=== PATIENT | male | born 1965 | race African-American/Black ===

== ENCOUNTER 2024-07-02 16:54 | Observation (INO) ==
[2024-07-02 17:40] LABS: BASOPHILS % (AUTO) 0.4 % (0.0-3.0); EOSINOPHILS # (AUTO) 0.2 K/ul (0.0-0.7); EOSINOPHILS % (AUTO) 2.5 % (0.0-7.0); HEMATOCRIT 46.2 % (42.0-52.0); HEMOGLOBIN 14.9 g/dl (14.0-18.0); IMMATURE GRANULOCYTE % (AUTO) 0.3 % (0.0-5.0); LYMPHOCYTES # (AUTO) 2.1 K/uL (0.60-3.4); LYMPHOCYTES % (AUTO) 29.7 (10.0-50.0); MEAN CORPUSCULAR HEMOGLOBIN 25.9 pg (27.0-31.0); MEAN CORPUSCULAR HGB CONC 32.3 (31.8-35.4); MEAN CORPUSCULAR VOLUME 80.2 fl (80.0-94.0); MONOCYTES # (AUTO) 0.5 K/uL (0.4-2.0); MONOCYTES % (AUTO) 6.9 (0-10); NEUTROPHILS # (AUTO) 4.3 K/ul (2.0-6.9); NEUTROPHILS % (AUTO) 60.2 % (42.2-75.2); PLATELET COUNT 198 10^3/uL (140-440); RDW COEFFICIENT OF VARIATION 14.8 % (11.6-14.8); RED BLOOD COUNT 5.76 10^6/ul (4.70-6.10); WHITE BLOOD COUNT 7.15 K/ul (4.2-10.2)
--- NOTE | 2024-07-02 17:48 | ED.PDOC ---
General ED Provider: Dr. PETE CASTRO MD Chief Complaint: Chest Pain Stated Complaint: 59-year-old male history of high cholesterol, does not see the doctor often, is not sure if he has high blood pressure, non-smoker, presenting to the emergency department with chest pain that started roughly around 3:00 today. It is substernal and he is also having some shoulder pain. He states that he has had shoulder pain recently. It has been waxing and waning but is still persistent. It is associated with diaphoresis and he did feel mildly short of breath when this happened. He did not have any nausea or vomiting with it. He has no history of DVT or PE that he is aware of. He is not coughing. He is not coughing up any blood. He denies fevers chills or feeling generally unwell. Denies malaise body aches, runny nose or sore throat. No diarrhea. Patient has no known cardiac history. Time Seen by Provider: 07/02/24 17:27 Information Source: Patient Primary Care Provider: FANTA DAVIS Nursing and Triage Documentation Reviewed and Agree: Yes What is Opioid Naive?: *Opioid Naive implies the patient is not already taking opioids or not chronically receiving opioids on a daily basis. *PRN dosing is not "usually" associated with tolerance. *Patients are at higher risk of over-sedation and aspiration. What is Opioid Tolerant?: *Opioid Tolerance implies less than the expected response to an opioid. *Acquired tolerance is defined by the patient taking 60mg of oral morphine daily (or equianalgesic dose of another opioid) for 1 week or more. *Often associated with chronic pain. *May take more than usual dose to achieve desired pain control. Review of Systems Review Of Systems Constitutional: Denies Chills or Fever Respiratory: Denies Cough Cardiac: Reports Chest pain GI: Denies Abdominal pain : Denies Burning or Dysuria Physical Exam Physical Exam Appearance: Reports Well-appearing Eyes: Reports AZAR, EOMI and Conjunctiva clear ENT: Reports Ears normal and Nose normal Respiratory: Reports Airway patent and Breath sounds clear; Denies Crackles, Rhonchi or Wheezes Cardiovascular: Reports RRR and Pulses normal GI/: Reports Soft and Nontender Musculoskeletal: Reports Normal strength and ROM intact Skin: Reports Warm Neurological: Reports Sensation intact Interpretation EKG Interpretation EKG Interpretation By: ED Physician Time of EKG #1: 17:04 Rate: Normal Rhythm: Sinus Ectopy: None [place]: NL ST Segment: Normal Course Course 07/02/24 17:20 07/02/24 17:20 Orders, Labs, Meds: Lab Review 07/02/24 07/02/24 07/02/24 17:20 18:37 19:05 WBC 7.15 RBC 5.76 Hgb 14.9 Hct 46.2 MCV 80.2 MCH 25.9 L MCHC 32.3 RDW Coeff of Patsy 14.8 Plt Count 198 Immature Gran % (Auto) 0.3 Neut % (Auto) 60.2 Lymph % (Auto) 29.7 [place] % (Auto) 6.9 Eos % (Auto) 2.5 Baso % (Auto) 0.4 Neut # (Auto) 4.3 Lymph # (Auto) 2.1 [place] # (Auto) 0.5 Eos # (Auto) 0.2 Baso # (Auto) 0.0 Immature Gran # (Auto) 0.0 PT 10.4 INR 1.00 Sodium 141.7 Potassium 3.91 Chloride 101.6 Carbon Dioxide 33.1 H Anion Gap 10.91 BUN 16.7 Creatinine 1.22 H Estimated GFR (MDRD) 74.00 BUN/Creatinine Ratio 13.68 Glucose 122.4 H Calcium 9.77 Magnesium 2.32 H Total Bilirubin 0.17 L AST 27.3 ALT 24.1 Alkaline Phosphatase 82.4 Troponin I < 0.012 0.041 NT-Pro-B Natriuret Pep < 20 Total Protein 7.76 Albumin 4.26 Globulin 3.50 Albumin/Globulin Ratio 1.21 D-Dimer 426.27 Influ A Molecular Assay Negative by naat Influ B Molecular Assay Negative by naat RSV Antigen Negative by naat SARS CoV-2 RNA Rapid ELIAN Negative Orders Category Date Time Status EKG-(ED ONLY) Stat CARDIO 07/02/24 17:27 Completed CBC W/ AUTO DIFF Stat LAB 07/02/24 17:20 Completed CMP [COMPREHENSIVE METABOLIC PANEL] Stat LAB 07/02/24 17:20 Completed COVID [SARS COV-2 RNA RAPID ELIAN] Stat LAB 07/02/24 18:37 Completed D-DIMER Stat LAB 07/02/24 17:20 Completed FLU A & B MOLECULAR [FLU A/B MOLECULAR] Stat LAB 07/02/24 18:37 Completed MAGNESIUM Stat LAB 07/02/24 17:20 Completed NT-PROBNP(ED) Stat LAB 07/02/24 17:20 Completed PT WITH INR Stat LAB 07/02/24 17:20 Completed RSV Stat LAB 07/02/24 18:37 Completed TROPONIN I Stat LAB 07/02/24 17:20 Completed TROPONIN I Stat LAB 07/02/24 19:05 Completed Aspirin [Aspirin Chewable] Meds 07/02/24 17:28 Discontinued 324 mg PO ONCE ONE Metoprolol Tartrate [Lopressor] Meds 07/02/24 19:42 Discontinued 25 mg PO ONCE STA Nitroglycerin [Nitro-Bid] Meds 07/02/24 18:47 Discontinued 0.5 inch TD ONCE ONE CXR [CHEST, 2 VIEWS PA & LAT] Stat RADS 07/02/24 17:27 Completed Medications Discontinued Medications Generic Name Dose Route Start Last Admin Trade Name Freq PRN Reason Stop Dose Admin Aspirin 324 mg 07/02/24 17:28 07/02/24 17:57 Aspirin 81 Mg Tab.Chew PO 07/02/24 17:29 324 mg ONCE ONE Administration Metoprolol Tartrate 25 mg 07/02/24 19:42 Metoprolol Tartrate 25 Mg Tablet PO 07/02/24 19:43 ONCE STA Nitroglycerin 0.5 inch 07/02/24 18:47 07/02/24 18:51 Nitroglycerin 1 Gm Oint TD 07/02/24 18:48 0.5 inch ONCE ONE Administration Vital Signs: Temp Pulse Resp BP Pulse Ox 07/02/24 17:03 100.1 F 100 14 189/124 H 95 Discharge Plan Discharge Patient Disposition: ADMITTED INPATIENT Discharge Problem: Chest pain, Hypertension Prescriptions: No Action pantoprazole [Protonix] [address] for susp in packet 40 mg PO DAILY albuterol sulfate 90 mcg/actuation HFA aerosol inhaler 2 inh inhalation Q4-6H PRN (Reason: shortness of breath or wheezing) Did you review [place] POWER TRANSMISSION ENGINEER for ALL controlled substances?: Not Applicable ED Provider: PETE CASTRO Condition: Stable Physician Progress Note: 59-year-old -[place] male history of high cholesterol no other known risk factors for ACS however does not follow-up with a physician regularly presenting to the emergency department with exertional chest pain that is substernal and feels like someone is stepping on his chest. He has not taken any medicine for this. It is currently a 3 out of 10. He is having a low-grade temp however with no infectious symptoms. His physical exam is unremarkable. His EKG was nonactionable however this is concerning for potential ACS. Will get CBC CMP troponin, will also get D-dimer as patient was reporting some thigh pain although he has no risk factors for DVT. Patient given aspirin in the ED. If troponins negative would likely admit to hospital for further cardiac testing and serial troponins versus transfer for NSTEMI. Less likely pneumothorax, pneumonia, patient not have any pain rating to his back. Not ripping or tearing pain to suggest dissection.
[2024-07-02 17:52] LABS: ALANINE AMINOTRANSFERASE 24.1 U/L (0-50); ALBUMIN 4.26 g/dL (3.5-5.0); ALKALINE PHOSPHATASE 82.4 U/L (38-126); ASPARTATE AMINO TRANSFERASE 27.3 U/L (17-59); BILIRUBIN,TOTAL 0.17 mg/dL (0.2-1.3); BLOOD UREA NITROGEN 16.7 mg/dL (9-20); CALCIUM 9.77 mg/dL (8.4-10.2); CARBON DIOXIDE 33.1 mmol/L (22-30.0); CHLORIDE 101.6 mmol/L (98-107); CREATININE 1.22 mg/dL (0.60-1.10); GLUCOSE 122.4 mg/dL (74-106); MAGNESIUM 2.32 mg/dL (1.6-2.3); POTASSIUM 3.91 mmol/L (3.5-5.1); SODIUM 141.7 mmol/L (134.5-145); TOTAL PROTEIN 7.76 g/dL (6.3-8.2)
[2024-07-02 17:56] LABS: PROTHROMBIN TIME 10.4 SEC (9.3-11.0)
[2024-07-02] MEDS: ASPIRIN CHEWABLE PO ONE (17:57)
--- NOTE | 2024-07-02 17:58 | DI ---
EXAM: CHEST RADIOGRAPH TECHNIQUE: Two views. Frontal and lateral. HISTORY: Leg swelling COMPARISON: None. FINDINGS: The lungs are clear. The heart size is normal. Osseous structures are unremarkable IMPRESSION: 1. Normal Exam.
[2024-07-02 18:04] LABS: TROPONIN I < 0.012 ng/ml (0.0000-0.120)
[2024-07-02] MEDS ORDERED: NITROGLYCERIN 0.1 MG/HR TD ONE (18:43)
[2024-07-02] MEDS: NITRO-BID TD ONE (18:51)
[2024-07-02 18:56] LABS: MOLECULAR FLU A NEGATIVE BY NAAT (NEGATIVE); MOLECULAR FLU B NEGATIVE BY NAAT (NEGATIVE); RSV MOLECULAR NEGATIVE BY NAAT (NEGATIVE); SARS COV-2 RNA RAPID NAAT NEGATIVE (NEGATIVE)
[2024-07-02] MEDS ORDERED: TYLENOL PO PRN (19:47)
[2024-07-02] MEDS ORDERED: NITROSTAT SL PRN (19:47)
[2024-07-02] MEDS ORDERED: HYDRALAZINE HCL IVP PRN (19:53)
[2024-07-02] MEDS: LOPRESSOR PO STA (20:02)
[2024-07-02 20:26] LABS: BILIRUBIN,URINE Negative (NEGATIVE); CLARITY,URINE Cloudy (CLEAR); COLOR,URINE Light (YELLOW); GLUCOSE, URINE (UA) Negative (NEGATIVE); KETONES,URINE Negative (NEGATIVE); LEUKOCYTE ESTERASE ,URINE 1+ (NEGATIVE); NITRITE,URINE Negative (NEGATIVE); PROTEIN,URINE Negative (NEGATIVE); URINE, BLOOD Negative (NEGATIVE)
[2024-07-02 20:36] LABS: AMORPHOUS SEDIMENT,UR 1+ (NOT PRESENT); BACTERIA,URINE TRACE (NOT PRESENT); RENAL EPITHELIAL CELLS,URINE 0-2 (NOT PRESENT); URINE RBC, MICROSCOPIC 0-2 (0-2)
[2024-07-02 21:48] VITALS: BMI 34.7
[2024-07-03 03:29] LABS: CREATINE KINASE 105.7 U/L (55-170)
[2024-07-03 03:42] LABS: TROPONIN I 0.479 ng/ml (0.0000-0.120)
[2024-07-03 05:42] LABS: BASOPHILS % (AUTO) 0.4 % (0.0-3.0); EOSINOPHILS # (AUTO) 0.3 K/ul (0.0-0.7); EOSINOPHILS % (AUTO) 3.6 % (0.0-7.0); HEMATOCRIT 43.4 % (42.0-52.0); HEMOGLOBIN 13.7 g/dl (14.0-18.0); IMMATURE GRANULOCYTE % (AUTO) 0.3 % (0.0-5.0); LYMPHOCYTES # (AUTO) 2.5 K/uL (0.60-3.4); LYMPHOCYTES % (AUTO) 36.5 (10.0-50.0); MEAN CORPUSCULAR HEMOGLOBIN 25.7 pg (27.0-31.0); MEAN CORPUSCULAR HGB CONC 31.6 (31.8-35.4); MEAN CORPUSCULAR VOLUME 81.3 fl (80.0-94.0); MONOCYTES # (AUTO) 0.5 K/uL (0.4-2.0); MONOCYTES % (AUTO) 7.8 (0-10); NEUTROPHILS # (AUTO) 3.5 K/ul (2.0-6.9); NEUTROPHILS % (AUTO) 51.4 % (42.2-75.2); PLATELET COUNT 200 10^3/uL (140-440); RDW COEFFICIENT OF VARIATION 14.9 % (11.6-14.8); RED BLOOD COUNT 5.34 10^6/ul (4.70-6.10)
[2024-07-03 05:59] LABS: ALANINE AMINOTRANSFERASE 20.6 U/L (0-50); ALBUMIN 3.69 g/dL (3.5-5.0); ALKALINE PHOSPHATASE 60.6 U/L (38-126); BILIRUBIN,TOTAL 0.18 mg/dL (0.2-1.3); BLOOD UREA NITROGEN 19.7 mg/dL (9-20); CALCIUM 9.21 mg/dL (8.4-10.2); CARBON DIOXIDE 28.3 mmol/L (22-30.0); CHLORIDE 107.3 mmol/L (98-107); CREATININE 1.14 mg/dL (0.60-1.10); GLUCOSE 101.1 mg/dL (74-106); POTASSIUM 4.27 mmol/L (3.5-5.1); TOTAL PROTEIN 6.94 g/dL (6.3-8.2)
[2024-07-03] MEDS: ASPIRIN EC PO SCH (09:52)
[2024-07-03 10:48] LABS: PROTHROMBIN TIME 10.4 SEC (9.3-11.0)
[2024-07-03 11:46] LABS: CHOLESTEROL 222.2 mg/dL (0-200); HDL CHOLESTEROL 28.1 mg/dL (35-60); TRIGLYCERIDES 125.2 mg/dL (0-150)
--- NOTE | 2024-07-03 11:55 | PCM.SS ---
Provider Provider: [facility]IST[facility] PACK [facility] Date Admission Date: 07/02/24 Discharge Date Discharge Date: 07/03/24 Primary Care Physician Primary Care Physician: FANTA DAVIS Chief Complaint Reason For Visit: CHEST PAIN, HYPERTENSION History of Present Illness History of Present Illness: Admitted 07/02/24 21:04, this 59 year old AA/BLACK/M with ARPITA on CPAP but otherwise no significant pmhx who presents to ER with complaints of chest pain x30 minutes on and off. It radiated to his left shoulder, but states he often has left shoulder pain due to his rotator cuff. Denies associated n/v, diaphoresis, jaw pain. Denies hx of smoking, drugs, etc. Has family history of mother with CAD s/p stents. Initial trop negative. EKG unremarkable. Admitted to [facility] for chest pain rule out and stress/echo planned for today on 07/03. H owever, patient's troponins have gradually trended up. Pt remains chest pain free since admission. Repeat EKG showing no ST changes currently. No other cause for elevated of troponin noted. CXR negative, flu/covid/rsv negative. Renal function at baseline. Pt started on heparin drip for NSTEMI. Discussed need for higher level of care. Pt prefers [facility]. Spoke with Dr. Traore at [facility] who graciously accepts patient. [facility] Medical History Sleep apnea in adult G47.30 - Sleep apnea, unspecified (ICD-10) Sleep apnea G47.30 - Sleep apnea, unspecified (ICD-10) Family History Mother COVID-19 Social History Smoking and tobacco status: Never smoker Alcohol intake: never Medications Mecications: Medications at Discharge (Home Meds & RX) pantoprazole 40 mg granules delayed-release for susp in packet (Protonix) 40 mg PO DAILY 01/03/24 albuterol sulfate 90 mcg/actuation aerosol inhaler 2 inh inhalation Q4-6H PRN shortness of breath or wheezing 07/02/24 Allergies Allergies Allergy/AdvReac Type Severity Reaction Status Date / Time No Known Allergies Allergy Verified 07/02/24 17:08 Review of Systems Constitutional: Denies Fever or Fatigue Head: Reports Normocephalic and Atraumatic Throat: Denies Sore Throat Cardiovascular: Reports Chest pain and Chest Pressure; Denies Edema Respiratory: Denies Cough or Shortness of air Gastrointestinal: Denies Nausea, Vomiting, Abdominal pain or Melena Genitourinary: Denies Dysuria, Hematuria or Frequency Dermatologic: Denies Rashes Neurological: Denies Dizziness Psychiatric: Denies Depression or Anxiety Physical Examination Appearance: Positive No Apparent Distress and Alert and Oriented x3 Head: Positive Normocephalic and Atraumatic Neck: Positive Supple and Non-Tender Heart: Positive RRR Respiratory: Positive Breath Sounds Clear, Bilaterally and Breath Sounds Equal; Negative Crackles, Rhonchi, Wheezes or Retractions GI/: Positive Soft, Nontender, Bowel sounds normal and No Distention Extremities: Positive Pedal Pulses Palpable Bilaterally; Negative Edema Psychiatric: Positive Normal Judgement, Normal Insight, Affect Appropriate and Mood Appropriate Vital Signs (Last 4 Hours) Vital Signs Last 4 Hours: Vital Signs: Last 4 Hours 07/03/24 08:00 07/03/24 08:00 07/03/24 09:00 Temperature Temperature Source Pulse Rate Respiratory Rate Blood Pressure Blood Pressure Mean Blood Pressure Location Blood Pressure Position O2 Sat by Pulse Oximetry Oxygen Delivery Method Room Air Room Air Room Air 07/03/24 09:00 07/03/24 10:00 07/03/24 10:00 Temperature 97.6 F Temperature Source Tympanic Pulse Rate 78 Respiratory Rate 18 Blood Pressure 129/89 Blood Pressure Mean 102 Blood Pressure Location Left Arm Blood Pressure Position Supine O2 Sat by Pulse Oximetry 95 Oxygen Delivery Method Room Air Room Air Room Air 07/03/24 10:00 07/03/24 11:00 Temperature Temperature Source Pulse Rate Respiratory Rate Blood Pressure Blood Pressure Mean Blood Pressure Location Blood Pressure Position O2 Sat by Pulse Oximetry Oxygen Delivery Method Room Air Room Air Labs This Visit Labs This Visit: Labs This Visit 07/02/24 07/02/24 07/02/24 17:20 18:37 19:05 WBC 7.15 RBC 5.76 Hgb 14.9 Hct 46.2 MCV 80.2 MCH 25.9 L MCHC 32.3 RDW Coeff of Patsy 14.8 Plt Count 198 Immature Gran % (Auto) 0.3 Neut % (Auto) 60.2 Lymph % (Auto) 29.7 [place] % (Auto) 6.9 Eos % (Auto) 2.5 Baso % (Auto) 0.4 Neut # (Auto) 4.3 Lymph # (Auto) 2.1 [place] # (Auto) 0.5 Eos # (Auto) 0.2 Baso # (Auto) 0.0 Immature Gran # (Auto) 0.0 PT 10.4 INR 1.00 Sodium 141.7 Potassium 3.91 Chloride 101.6 Carbon Dioxide 33.1 H Anion Gap 10.91 BUN 16.7 Creatinine 1.22 H Estimated GFR (MDRD) 74.00 BUN/Creatinine Ratio 13.68 Glucose 122.4 H Hemoglobin A1c Calcium 9.77 Magnesium 2.32 H Total Bilirubin 0.17 L AST 27.3 ALT 24.1 Alkaline Phosphatase 82.4 Total Creatine Kinase Troponin I < 0.012 0.041 NT-Pro-B Natriuret Pep < 20 Total Protein 7.76 Albumin 4.26 Globulin 3.50 Albumin/Globulin Ratio 1.21 Triglycerides Cholesterol LDL Cholesterol, Calc VLDL Cholesterol HDL Cholesterol Cholesterol/HDL Ratio D-Dimer 426.27 Urine Color Urine Clarity Urine pH Ur Specific Gilbert Urine Protein Urine Glucose (UA) Urine Ketones Urine Blood Urine Nitrite Urine Bilirubin Urine Urobilinogen Ur Leukocyte Esterase Urine Microscopic RBC Urine Microscopic WBC Ur Squamous Epith Cells Ur Renal Epithelial Cell Amorphous Sediment Urine Bacteria Influ A Molecular Assay Negative by naat Influ B Molecular Assay Negative by naat RSV Antigen Negative by naat SARS CoV-2 RNA Rapid ELIAN Negative 07/02/24 07/03/24 07/03/24 20:20 03:15 05:20 WBC 6.90 RBC 5.34 Hgb 13.7 L Hct 43.4 MCV 81.3 MCH 25.7 L MCHC 31.6 L RDW Coeff of Patsy 14.9 H Plt Count 200 Immature Gran % (Auto) 0.3 Neut % (Auto) 51.4 Lymph % (Auto) 36.5 [place] % (Auto) 7.8 Eos % (Auto) 3.6 Baso % (Auto) 0.4 Neut # (Auto) 3.5 Lymph # (Auto) 2.5 [place] # (Auto) 0.5 Eos # (Auto) 0.3 Baso # (Auto) 0.0 Immature Gran # (Auto) 0.0 PT 10.4 INR 1.00 Sodium 140.0 Potassium 4.27 Chloride 107.3 H Carbon Dioxide 28.3 Anion Gap 8.67 BUN 19.7 Creatinine 1.14 H Estimated GFR (MDRD) 80.00 BUN/Creatinine Ratio 17.28 Glucose 101.1 Hemoglobin A1c 6.12 H Calcium 9.21 Magnesium Total Bilirubin 0.18 L AST 27.0 ALT 20.6 Alkaline Phosphatase 60.6 Total Creatine Kinase 105.7 Troponin I 0.479 H NT-Pro-B Natriuret Pep Total Protein 6.94 Albumin 3.69 Globulin 3.25 Albumin/Globulin Ratio 1.13 Triglycerides 125.2 Cholesterol 222.2 H LDL Cholesterol, Calc 169 VLDL Cholesterol 25 HDL Cholesterol 28.1 L Cholesterol/HDL Ratio 7.9 H D-Dimer Urine Color Light Urine Clarity Cloudy Urine pH 7.0 Ur Specific Gilbert 1.020 Urine Protein Negative Urine Glucose (UA) Negative Urine Ketones Negative Urine Blood Negative Urine Nitrite Negative Urine Bilirubin Negative Urine Urobilinogen 1.0 H Ur Leukocyte Esterase 1+ H Urine Microscopic RBC 0-2 Urine Microscopic WBC 5-10 Ur Squamous Epith Cells 2-5 Ur Renal Epithelial Cell 0-2 Amorphous Sediment 1+ Urine Bacteria Trace Influ A Molecular Assay Influ B Molecular Assay RSV Antigen SARS CoV-2 RNA Rapid ELIAN 07/03/24 09:26 WBC RBC Hgb Hct MCV MCH MCHC RDW Coeff of Patsy Plt Count Immature Gran % (Auto) Neut % (Auto) Lymph % (Auto) [place] % (Auto) Eos % (Auto) Baso % (Auto) Neut # (Auto) Lymph # (Auto) [place] # (Auto) Eos # (Auto) Baso # (Auto) Immature Gran # (Auto) PT INR Sodium Potassium Chloride Carbon Dioxide Anion Gap BUN Creatinine Estimated GFR (MDRD) BUN/Creatinine Ratio Glucose Hemoglobin A1c Calcium Magnesium Total Bilirubin AST ALT Alkaline Phosphatase Total Creatine Kinase Troponin I 0.525 H* NT-Pro-B Natriuret Pep Total Protein Albumin Globulin Albumin/Globulin Ratio Triglycerides Cholesterol LDL Cholesterol, Calc VLDL Cholesterol HDL Cholesterol Cholesterol/HDL Ratio D-Dimer Urine Color Urine Clarity Urine pH Ur Specific Gilbert Urine Protein Urine Glucose (UA) Urine Ketones Urine Blood Urine Nitrite Urine Bilirubin Urine Urobilinogen Ur Leukocyte Esterase Urine Microscopic RBC Urine Microscopic WBC Ur Squamous Epith Cells Ur Renal Epithelial Cell Amorphous Sediment Urine Bacteria Influ A Molecular Assay Influ B Molecular Assay RSV Antigen SARS CoV-2 RNA Rapid ELIAN Microbiology This Visit 07/02/24 20:20 Urine,Random Urine Culture - Preliminary Imaging Imaging: EXAM: CHEST RADIOGRAPH TECHNIQUE: Two views. Frontal and lateral. HISTORY: Leg swelling COMPARISON: None. FINDINGS: The lungs are clear. The heart size is normal. Osseous structures are unremarkable IMPRESSION: 1. Normal Exam. Review Review Statement: I have independently reviewed and interpreted the labs/EKGs/imaging that were ordered by the ER provider. I have reviewed all outside records that are available currently in our EMR including imaging/notes/labs from previous visits. Plan Reccomendations/Plan: Patient was admitted to [facility] for chest pain rule out and stress/echo planned for today on 07/03. However, patient's troponins have gradually trended up. Pt remains chest pain free since admission. Repeat EKG showing no ST changes currently. No other cause for elevated of troponin noted. CXR negative, flu/covid/rsv negative. Renal function at baseline. Pt started on heparin drip for NSTEMI. Discussed need for higher level of care. Pt prefers [facility]. Spoke with Dr. Traore at [facility] who graciously accepts patient. Discharge diagnoses: 1. NSTEMI in setting of chest pain 2. ARPITA Additional Planning: Case discussed with ED Physician, Dr. Almazan. Advanced Care Plannin minutes spent discussing advance care planning. Disposition: Transfer Admit to: Obs Discussed Plan of Care with Dr. Temitope Traore. Review With Patient Reviewed with Patient and Family: Patient and family have been counseled on condition and care plan and have no immediate questions. I have personally discussed and reviewed the patient's visit/current labs/imaging/decision making with Dr. Temitope Traore, my supervising attending. Total number of minutes spent with patient [85] min. More than 50% of the time spent with this patient was devoted to counseling and coordination of care. Time of Admission:07/02/24 21:04 Time of Discharge: 07/03/24 1200 Discharge Plan Discharge Discharge Orders: Discharge Patient (ONCE); Ordered 07/03/24 Ordered By: MISTY PACK Activity Restrictions/Additional Instructions: TRANSFER TO [facility], DR. TRAORE ACCEPTS Patient Disposition: TSF SHORT-TRM HOSP Did you review [place] SOFTWARE TEST ANALYST for ALL controlled substances?: Not Applicable Discussed opioids are addictive and Narcan is available by prescription or from pharmacy.: No Condition: Stable
[2024-07-03] MEDS: HEPARIN 25,000 UNIT/250 ML NACL 25,000 UNIT/250 ML BAG IV SCH (12:43)
--- NOTE | 2024-07-03 14:46 | PCM ---
Date of Service Date Seen by Provider: 07/03/24 Time Seen by Provider: 19:47 Admit Day/Time Admission Date: 07/02/24 Admission Time: 16:16 Reason for Admission Chief Complaint: CHEST PAIN, HYPERTENSION Hospital Provider Hospital Provider: MISTY PACK PA-C, [facility] [place] [facility] Primary Care Physician: FANTA DAVIS History of Present Illness History of Present Illness: Admitted 07/02/24 21:04, this 59 year old AA/BLACK/M with ARPITA on CPAP but otherwise no significant pmhx who presents to ER with complaints of chest pain x30 minutes on and off. It radiated to his left shoulder, but states he often has left shoulder pain due to his rotator cuff. Denies associated n/v, diaphoresis, jaw pain. Denies hx of smoking, drugs, etc. Has family history of mother with CAD s/p stents. Initial trop negative. EKG unremarkable. Admitted to med surg for chest pain rule out and stress/echo planned for today on 07/03. However, patient's troponins have gradually trended up. Pt remains chest pain free since admission. Repeat EKG showing no ST changes currently. No other cause for elevated of troponin noted. CXR negative, flu/covid/rsv negative. Renal function at baseline. Pt started on heparin drip for NSTEMI. Discussed need for higher level of care with him and his . Case Discussed With Case Discussed With: Patient's case was discussed with the ER Physicians, Dr. Almazan. [facility] Medical History Sleep apnea in adult G47.30 - Sleep apnea, unspecified (ICD-10) Sleep apnea G47.30 - Sleep apnea, unspecified (ICD-10) Family History Mother COVID-19 Social History Smoking and tobacco status: Never smoker Alcohol intake: never Allergies Allergies Allergy/AdvReac Type Severity Reaction Status Date / Time No Known Allergies Allergy Verified 07/02/24 17:08 Current Medications Home Medications Acetaminophen (Acetaminophen 325 Mg Tablet) 650 mg PO Q4H PRN PRN Reason: FEVER/PAIN Aspirin (Aspirin 81 Mg Tablet.) 81 mg PO DAILY [facility] Last Admin: 07/03/24 09:52 Dose: 81 mg Hydralazine HCl (Hydralazine Hcl 20 Mg/Ml Sdv) 10 mg IVP Q6H PRN PRN Reason: Hypertension Heparin Sodium/Sodium Chloride (Heparin 25,000 Unit/250 Ml Nacl) 25,000 unit in 250 mls @ 13.2 mls/hr IV TITRATION [facility]; Protocol Last Admin: 07/03/24 12:43 Dose: 12 unit/kg/hr, 13.2 mls/hr Metoprolol Tartrate (Metoprolol Tartrate 25 Mg Tablet) 25 mg PO BID [facility] Last Admin: 07/03/24 15:52 Dose: 25 mg Nitroglycerin (Nitroglycerin 0.4 Mg Tab.Subl) 0.4 mg SL Q5MIN X 3 DOSES PRN PRN Reason: Chest Pain Sodium Chloride (0.9% Sodium Chloride 10 Ml Disp.Syrin) 1 syr IVF Q8HR [facility] Last Admin: 07/03/24 13:16 Dose: Not Given pantoprazole 40 mg granules delayed-release for susp in packet (Protonix) 40 mg PO DAILY 01/03/24 [History Confirmed 07/02/24] albuterol sulfate 90 mcg/actuation aerosol inhaler 2 inh inhalation Q4-6H PRN shortness of breath or wheezing 07/02/24 [History Confirmed 07/02/24] Opioid Naive vs. Tolerant Does Patient Take Opioids?: No Is Patient Opioid Naive?: Yes What is Opioid Naive?: *Opioid Naive implies the patient is not already taking opioids or not chronically receiving opioids on a daily basis. *PRN dosing is not "usually" associated with tolerance. *Patients are at higher risk of over-sedation and aspiration. Is Patient Opioid Tolerant?: No What is Opioid Tolerant?: *Opioid Tolerance implies less than the expected response to an opioid. *Acquired tolerance is defined by the patient taking 60mg of oral morphine daily (or equianalgesic dose of another opioid) for 1 week or more. *Often associated with chronic pain. *May take more than usual dose to achieve desired pain control. Review of Systems Constitutional: Denies Fever or Fatigue Cardiovascular: Reports Chest pain and Chest Pressure; Denies Edema Respiratory: Reports Cough (patient states this is chronic ); Denies Shortness of air Gastrointestinal: Denies Nausea, Vomiting, Diarrhea, Abdominal pain or Melena Genitourinary: Denies Dysuria or Hematuria Dermatologic: Denies Rashes Physical examination Most Recent Vital Signs: Most Recent Vital Signs Temperature 97 F L 07/03/24 13:18 Temperature Source Tympanic 07/03/24 13:18 Temperature Source Rectal 07/02/24 17:03 Pulse Rate 82 07/03/24 13:18 Respiratory Rate 18 07/03/24 13:18 Blood Pressure 139/99 H 07/03/24 13:18 Blood Pressure Mean 112 07/03/24 13:18 Blood Pressure Left Arm 151/91 07/02/24 21:37 Blood Pressure Location Left Arm 07/03/24 13:18 Blood Pressure Position Sitting 07/03/24 13:18 O2 Sat by Pulse Oximetry 95 07/03/24 13:18 Oxygen Delivery Method Room Air 07/03/24 13:18 Oxygen Flow Rate 2 07/03/24 02:00 Height 5 ft 10 in 07/02/24 21:37 Weight 110 kg 07/02/24 21:37 Telemetry Type Remote Telemetry 07/03/24 07:00 Telemetry Monitoring Continues 07/03/24 01:00 Telemetry Heart Rate 81 07/03/24 07:00 EKG [place] Interval 0.17 07/03/24 07:00 EKG QRS Interval 0.05 L 07/03/24 07:00 Telemetry Strip Reading SR 07/03/24 07:00 Appearance: Positive No Apparent Distress and Alert and Oriented x3 Skin: Negative Rashes HEENT: Positive Normocephalic and Atraumatic Chest/Lungs: Positive Clear to Auscultation Bilaterally; Negative Rales, Rhonci or Wheezes Heart: Positive RRR GI/: Positive Soft, Nontender, Bowel Sounds Normal and No Distention Neurological: Positive Cranial Nerves Intact, Alert and Oriented Psychiatric: Positive Oriented x4, Appropriate Mood and Appropriate Affect Labs This Visit Labs This Visit: Labs This Visit 07/02/24 07/02/24 07/02/24 17:20 18:37 19:05 WBC 7.15 RBC 5.76 Hgb 14.9 Hct 46.2 MCV 80.2 MCH 25.9 L MCHC 32.3 RDW Coeff of Patsy 14.8 Plt Count 198 Immature Gran % (Auto) 0.3 Neut % (Auto) 60.2 Lymph % (Auto) 29.7 [place] % (Auto) 6.9 Eos % (Auto) 2.5 Baso % (Auto) 0.4 Neut # (Auto) 4.3 Lymph # (Auto) 2.1 [place] # (Auto) 0.5 Eos # (Auto) 0.2 Baso # (Auto) 0.0 Immature Gran # (Auto) 0.0 PT 10.4 INR 1.00 Sodium 141.7 Potassium 3.91 Chloride 101.6 Carbon Dioxide 33.1 H Anion Gap 10.91 BUN 16.7 Creatinine 1.22 H Estimated GFR (MDRD) 74.00 BUN/Creatinine Ratio 13.68 Glucose 122.4 H Hemoglobin A1c Calcium 9.77 Magnesium 2.32 H Total Bilirubin 0.17 L AST 27.3 ALT 24.1 Alkaline Phosphatase 82.4 Total Creatine Kinase Troponin I < 0.012 0.041 NT-Pro-B Natriuret Pep < 20 Total Protein 7.76 Albumin 4.26 Globulin 3.50 Albumin/Globulin Ratio 1.21 Triglycerides Cholesterol LDL Cholesterol, Calc VLDL Cholesterol HDL Cholesterol Cholesterol/HDL Ratio D-Dimer 426.27 Urine Color Urine Clarity Urine pH Ur Specific [place] Urine Protein Urine Glucose (UA) Urine Ketones Urine Blood Urine Nitrite Urine Bilirubin Urine Urobilinogen Ur Leukocyte Esterase Urine Microscopic RBC Urine Microscopic WBC Ur Squamous Epith Cells Ur Renal Epithelial Cell Amorphous Sediment Urine Bacteria Influ A Molecular Assay Negative by naat Influ B Molecular Assay Negative by naat RSV Antigen Negative by naat SARS CoV-2 RNA Rapid ELIAN Negative 07/02/24 07/03/24 07/03/24 20:20 03:15 05:20 WBC 6.90 RBC 5.34 Hgb 13.7 L Hct 43.4 MCV 81.3 MCH 25.7 L MCHC 31.6 L RDW Coeff of Patsy 14.9 H Plt Count 200 Immature Gran % (Auto) 0.3 Neut % (Auto) 51.4 Lymph % (Auto) 36.5 [place] % (Auto) 7.8 Eos % (Auto) 3.6 Baso % (Auto) 0.4 Neut # (Auto) 3.5 Lymph # (Auto) 2.5 [place] # (Auto) 0.5 Eos # (Auto) 0.3 Baso # (Auto) 0.0 Immature Gran # (Auto) 0.0 PT 10.4 INR 1.00 Sodium 140.0 Potassium 4.27 Chloride 107.3 H Carbon Dioxide 28.3 Anion Gap 8.67 BUN 19.7 Creatinine 1.14 H Estimated GFR (MDRD) 80.00 BUN/Creatinine Ratio 17.28 Glucose 101.1 Hemoglobin A1c 6.12 H Calcium 9.21 Magnesium Total Bilirubin 0.18 L AST 27.0 ALT 20.6 Alkaline Phosphatase 60.6 Total Creatine Kinase 105.7 Troponin I 0.479 H NT-Pro-B Natriuret Pep Total Protein 6.94 Albumin 3.69 Globulin 3.25 Albumin/Globulin Ratio 1.13 Triglycerides 125.2 Cholesterol 222.2 H LDL Cholesterol, Calc 169 VLDL Cholesterol 25 HDL Cholesterol 28.1 L Cholesterol/HDL Ratio 7.9 H D-Dimer Urine Color Light Urine Clarity Cloudy Urine pH 7.0 Ur Specific [place] 1.020 Urine Protein Negative Urine Glucose (UA) Negative Urine Ketones Negative Urine Blood Negative Urine Nitrite Negative Urine Bilirubin Negative Urine Urobilinogen 1.0 H Ur Leukocyte Esterase 1+ H Urine Microscopic RBC 0-2 Urine Microscopic WBC 5-10 Ur Squamous Epith Cells 2-5 Ur Renal Epithelial Cell 0-2 Amorphous Sediment 1+ Urine Bacteria Trace Influ A Molecular Assay Influ B Molecular Assay RSV Antigen SARS CoV-2 RNA Rapid ELIAN 07/03/24 09:26 WBC RBC Hgb Hct MCV MCH MCHC RDW Coeff of Patsy Plt Count Immature Gran % (Auto) Neut % (Auto) Lymph % (Auto) [place] % (Auto) Eos % (Auto) Baso % (Auto) Neut # (Auto) Lymph # (Auto) [place] # (Auto) Eos # (Auto) Baso # (Auto) Immature Gran # (Auto) PT INR Sodium Potassium Chloride Carbon Dioxide Anion Gap BUN Creatinine Estimated GFR (MDRD) BUN/Creatinine Ratio Glucose Hemoglobin A1c Calcium Magnesium Total Bilirubin AST ALT Alkaline Phosphatase Total Creatine Kinase Troponin I 0.525 H* NT-Pro-B Natriuret Pep Total Protein Albumin Globulin Albumin/Globulin Ratio Triglycerides Cholesterol LDL Cholesterol, Calc VLDL Cholesterol HDL Cholesterol Cholesterol/HDL Ratio D-Dimer Urine Color Urine Clarity Urine pH Ur Specific [place] Urine Protein Urine Glucose (UA) Urine Ketones Urine Blood Urine Nitrite Urine Bilirubin Urine Urobilinogen Ur Leukocyte Esterase Urine Microscopic RBC Urine Microscopic WBC Ur Squamous Epith Cells Ur Renal Epithelial Cell Amorphous Sediment Urine Bacteria Influ A Molecular Assay Influ B Molecular Assay RSV Antigen SARS CoV-2 RNA Rapid ELIAN Microbiology This Visit 07/02/24 20:20 Urine,Random Urine Culture - Preliminary Imaging Imaging: EXAM: CHEST RADIOGRAPH TECHNIQUE: Two views. Frontal and lateral. HISTORY: Leg swelling COMPARISON: None. FINDINGS: The lungs are clear. The heart size is normal. Osseous structures are unremarkable IMPRESSION: 1. Normal Exam. Review Statement Review Statement: I have independently reviewed and interpreted the labs/EKGs/imaging that were ordered by the ER provider. I have reviewed all outside records that are available currently in our EMR including imaging/notes/labs from previous visits. Plan Plan: 1. NSTEMI in setting of chest pain - Trop up to 0.5. Chest pain free currently. Received full dose asa last night in ER, baby asa this morning. Start heparin drip. PTT q6hrs, adjust per protocol. Metoprolol 25 mg bid added. NPO after midnight since not transferring today. Tele. 2. ARPITA - Wear CPAP at bedtime Delay in transfer due to no beds available at multiple facilities. Patient prefers [facility]. Initially was accepted to [facility] ER but there was a mix up in bed status. He has since been accepted by Dr. Becerra, hospitalist if a bed becomes available. Dr. Olivares, cardiology is aware and willing to consult. [facility] is full. [facility] - also full but on wait list as well. Dr. Andersen is accepting hospitalist. Dr. Baltazar, cardiology is aware of patient and able to cath tomorrow if bed becomes available. DVT Prophylaxis: Heparin drip Time Spent: Greater than 80 minutes spent with patient, 50% of the time spent with this patient was devoted to counseling and coordination of care. [facility] minutes spent discussing advance care planning. Admit to: Obs Discussed Plan of Care with Dr. Temitope Traore. Medications Medication Orders: Medications Ordered Category Date Time Status 0.9 % Sodium Chloride [Saline Flush] Meds 07/02/24 21:00 Active 1 syr IVF Q8HR Acetaminophen [Tylenol] Meds 07/02/24 19:47 Active 650 mg PO Q4H PRN Aspirin [Aspirin EC] Meds 07/03/24 09:00 Active 81 mg PO DAILY Heparin Sod,Pork in 0.45% NaCl [Heparin 25,000 Unit/250 Meds 07/03/24 11:00 Active ml NaCl] 25,000 unit in 250 ml IV TITRATION Hydralazine HCl Meds 07/02/24 19:53 Active 10 mg IVP Q6H PRN Metoprolol Tartrate [Lopressor] Meds 07/03/24 14:30 Active 25 mg PO BID Nitroglycerin [Nitrostat] Meds 07/02/24 19:47 Active 0.4 mg SL Q5MIN X 3 DOSES PRN
[2024-07-03] MEDS: LOPRESSOR PO SCH (15:52)
[2024-07-03] MEDS: HEPARIN IVP ONE (23:29)
[2024-07-04 04:39] LABS: BASOPHILS % (AUTO) 0.4 % (0.0-3.0); EOSINOPHILS # (AUTO) 0.4 K/ul (0.0-0.7); EOSINOPHILS % (AUTO) 4.9 % (0.0-7.0); HEMOGLOBIN 13.9 g/dl (14.0-18.0); IMMATURE GRANULOCYTE % (AUTO) 0.3 % (0.0-5.0); LYMPHOCYTES # (AUTO) 3.4 K/uL (0.60-3.4); LYMPHOCYTES % (AUTO) 46.2 (10.0-50.0); MEAN CORPUSCULAR HEMOGLOBIN 25.6 pg (27.0-31.0); MEAN CORPUSCULAR HGB CONC 30.9 (31.8-35.4); MEAN CORPUSCULAR VOLUME 82.7 fl (80.0-94.0); MONOCYTES # (AUTO) 0.5 K/uL (0.4-2.0); MONOCYTES % (AUTO) 6.6 (0-10); NEUTROPHILS % (AUTO) 41.6 % (42.2-75.2); PLATELET COUNT 189 10^3/uL (140-440); RDW COEFFICIENT OF VARIATION 14.8 % (11.6-14.8); RED BLOOD COUNT 5.44 10^6/ul (4.70-6.10)
[2024-07-04 05:04] LABS: ALANINE AMINOTRANSFERASE 21.3 U/L (0-50); ALBUMIN 3.81 g/dL (3.5-5.0); ALKALINE PHOSPHATASE 72.4 U/L (38-126); ASPARTATE AMINO TRANSFERASE 32.5 U/L (17-59); BILIRUBIN,TOTAL 0.13 mg/dL (0.2-1.3); CALCIUM 9.2 mg/dL (8.4-10.2); CARBON DIOXIDE 30.4 mmol/L (22-30.0); CHLORIDE 105.1 mmol/L (98-107); CREATININE 1.23 mg/dL (0.60-1.10); GLUCOSE 110.5 mg/dL (74-106); POTASSIUM 4.4 mmol/L (3.5-5.1); SODIUM 139.6 mmol/L (134.5-145); TOTAL PROTEIN 6.96 g/dL (6.3-8.2)
[2024-07-04 05:10] VITALS: BP 124/75; PULSE 69; RESP 20; TEMP 96.7
--- NOTE | 2024-07-04 08:02 | DCSUM ---
Admission Date Admission Date: 07/02/24 Discharge Date Discharge Date: 07/04/24 Admission Diagnosis Admission Diagnosis: 1. Chest pain Discharge Diagnosis Discharge Diagnosis: 1. NSTEMI in setting of chest pain 2. ARPITA Hospital Provider Hospital Provider: MISTY PACK PA-C, [facility] Primary Care Physician Primary Care Physician: FANTA DAVIS Summary of History and Physical Summary of History and Physical: Admitted 07/02/24 21:04, this 59 year old AA/BLACK/M with ARPITA on CPAP but otherwise no significant pmhx who presents to ER with complaints of chest pain x30 minutes on and off. It radiated to his left shoulder, but states he often has left shoulder pain due to his rotator cuff. Denies associated n/v, diap horesis, jaw pain. Denies hx of smoking, drugs, etc. Has family history of mother with CAD s/p stents. Initial trop negative. EKG unremarkable. Admitted to [facility] surg for chest pain rule out and stress/echo planned for today on 07/03. However, patient's troponins have gradually trended up to 0.5 (normal upper limit is 0.120). Pt remains chest pain free since admission. Repeat EKG showing no ST changes currently. No other cause for elevated of troponin noted. CXR negative, flu/covid/rsv negative. Renal function at baseline. Pt started on heparin drip for NSTEMI. Discussed need for higher level of care with him and his . Hospital Course Subjective: Transfer delayed due to no beds available at multiple facilities. Patient was accepted at [facility] by Dr. Andersen, hospitalist. Dr. Baltazar, bridge teacher is on board as well. Agrees with heparin drip, recommended adding metoprolol 25 mg bid which was done. Pt has been NPO since midnight in preparation for cath this morning. Patient is aware of the plan to cath him. Pt in stable condition upon discharge. is also aware and in agreement with the plan. Appearance: Pleasant, No Apparent Distress and Alert HEENT: MMM CVS: No Murmur Abdomen: Soft, Non-Tender and No Distention Respiratory: No Accessory Muscle Use Extremities: No Edema Vital Signs: Most Recent Vital Signs Temperature 96.7 F L 07/04/24 05:10 Temperature Source Temporal Artery Scan 07/04/24 05:10 Temperature Source Rectal 07/02/24 17:03 Pulse Rate 69 07/04/24 05:10 Respiratory Rate 20 07/04/24 05:10 Blood Pressure 124/75 07/04/24 05:10 Blood Pressure Mean 91 07/04/24 05:10 Blood Pressure Left Arm 151/91 07/02/24 21:37 Blood Pressure Location Left Arm 07/04/24 05:10 Blood Pressure Position Supine 07/04/24 05:10 O2 Sat by Pulse Oximetry 96 07/04/24 05:10 Oxygen Delivery Method Room Air 07/04/24 07:00 Oxygen Flow Rate 2 07/04/24 02:00 Height 5 ft 10 in 07/02/24 21:37 Weight 110 kg 07/02/24 21:37 Telemetry Type Remote Telemetry 07/04/24 07:00 Telemetry Monitoring Continues 07/04/24 07:00 Telemetry Heart Rate 78 07/04/24 07:00 EKG [place] Interval 0.18 07/04/24 07:00 EKG QRS Interval 0.06 07/04/24 07:00 Telemetry Strip Reading NSR 07/04/24 07:00 Imaging: EXAM: CHEST RADIOGRAPH TECHNIQUE: Two views. Frontal and lateral. HISTORY: Leg swelling COMPARISON: None. FINDINGS: The lungs are clear. The heart size is normal. Osseous structures are unremarkable IMPRESSION: 1. Normal Exam. Lab Results Last 24 Hours: 07/04/24 07/03/24 07/03/24 04:32 22:47 17:07 WBC 7.30 RBC 5.44 Hgb 13.9 L Hct 45.0 MCV 82.7 MCH 25.6 L MCHC 30.9 L RDW Coeff of Patsy 14.8 Plt Count 189 Immature Gran % (Auto) 0.3 Neut % (Auto) 41.6 L Lymph % (Auto) 46.2 [place] % (Auto) 6.6 Eos % (Auto) 4.9 Baso % (Auto) 0.4 Neut # (Auto) 3.0 Lymph # (Auto) 3.4 [place] # (Auto) 0.5 Eos # (Auto) 0.4 Baso # (Auto) 0.0 Immature Gran # (Auto) 0.0 PT INR APTT 48.3 H D 30.9 29.2 Sodium 139.6 Potassium 4.40 Chloride 105.1 Carbon Dioxide 30.4 H Anion Gap 8.50 BUN 19.0 Creatinine 1.23 H Estimated GFR (MDRD) 73.00 BUN/Creatinine Ratio 15.44 Glucose 110.5 H Hemoglobin A1c Calcium 9.20 Total Bilirubin 0.13 L AST 32.5 ALT 21.3 Alkaline Phosphatase 72.4 Troponin I Total Protein 6.96 Albumin 3.81 Globulin 3.15 Albumin/Globulin Ratio 1.20 Triglycerides Cholesterol LDL Cholesterol, Calc VLDL Cholesterol HDL Cholesterol Cholesterol/HDL Ratio 07/03/24 07/03/24 09:26 05:20 WBC RBC Hgb Hct MCV MCH MCHC RDW Coeff of Patsy Plt Count Immature Gran % (Auto) Neut % (Auto) Lymph % (Auto) [place] % (Auto) Eos % (Auto) Baso % (Auto) Neut # (Auto) Lymph # (Auto) [place] # (Auto) Eos # (Auto) Baso # (Auto) Immature Gran # (Auto) PT 10.4 INR 1.00 APTT Sodium Potassium Chloride Carbon Dioxide Anion Gap BUN Creatinine Estimated GFR (MDRD) BUN/Creatinine Ratio Glucose Hemoglobin A1c 6.12 H Calcium Total Bilirubin AST ALT Alkaline Phosphatase Troponin I 0.525 H* Total Protein Albumin Globulin Albumin/Globulin Ratio Triglycerides 125.2 Cholesterol 222.2 H LDL Cholesterol, Calc 169 VLDL Cholesterol 25 HDL Cholesterol 28.1 L Cholesterol/HDL Ratio 7.9 H Discharge Instructions Discharge Planning: Discharge Planning > [address] Temitope Traore. Transfer to [place] for cardiac cath Discharge Medications: Discharge Plan Discharge Discharge Orders: Discharge Patient (ONCE); Ordered 07/04/24 Ordered By: MISTY PACK Activity Restrictions/Additional Instructions: TRANSFER TO [facility] NPO CONTINUE HEPARIN DRIP Patient Disposition: TSF SHORT-TRM HOSP Did you review [place] [employer] for ALL controlled substances?: Not Applicable Discussed opioids are addictive and Narcan is available by prescription or from pharmacy.: No Condition: Stable
== END 2024-07-04 09:10 | disposition short-term general hospital (02) ==
LOC: ED 16:54 → MEDSURG B 16:54
PROVIDERS: ADMIT Hospitalist; ATTEND Physician Assistant
DX: E78.5 Hyperlipidemia, unspecified; G47.33 Obstructive sleep apnea (adult) (pediatric); R50.9 Fever, unspecified; I10 Essential (primary) hypertension; R79.89 Other specified abnormal findings of blood chemistry; I21.4 Non-ST elevation (NSTEMI) myocardial infarction; Z20.822 Contact with and (suspected) exposure to COVID-19